=== PATIENT | female | born 2000 | race Hispanic/Latino ===

== ENCOUNTER 2025-04-10 03:06 | Emergency (ER) | payer SELFPAY ==
[2025-04-10] MEDS ORDERED: diphenhydrAMINE 50 MG/ML VIAL ONE (03:34)
[2025-04-10] MEDS ORDERED: Prochlorperazine 10 MG/2 ML VIAL ONE (03:34)
[2025-04-10] MEDS ORDERED: Ketorolac Tromethamine 30 MG (1 mL) VIAL ONE (03:34)
[2025-04-10 03:52] LABS: #Basophils 0.07 10x3/uL (0.0-0.2); #Eosinophils 0.63 10x3/uL (0.0-0.5); #Monocytes 0.50 10x3/uL (0.0-1.1); #Neutrophils 4.41 10x3/uL (1.5-8.4); %Basophils 0.8 % (0.0-2.0); %Eosinophils 7.2 % (0.0-6.0); %Lymphocytes 35.4 % (18.0-47.0); %Monocytes 5.7 % (0.0-10.0); %Neutrophils 50.4 % (40.0-75.0); Hematocrit 39.8 % (34.9-44.5); Hemoglobin 13.6 g/dL (12.0-15.5); Mean Corpuscular Hemoglobin 29.2 pg (27.0-33.0); Mean Corpuscular Volume 85.6 fL (81.6-98.3); Platelet Count 338 10x3/uL (150-450); Red Blood Cell (RBC) Count 4.65 10x6/uL (3.90-5.03); White Blood Cell (WBC) Count 8.74 10x3/uL (3.5-10.5)
[2025-04-10 04:02] LABS: BHCG - Serum Negative (NEGATIVE); Pregs Control Background? CLEAR/WHITE (CLR/WHITE); Pregs Control Bar Appear? YES (CONTROL BAR)
[2025-04-10 04:06] LABS: ALT (SGPT) 19 U/L (Less than 34); AST (SGOT) 33 U/L (11-34); Albumin 4.3 g/dL (3.1-4.5); Alkaline Phosphatase 82 U/L (40-110); Anion Gap 14 mmol/L (10-20); BUN (Urea Nitrogen) 13 mg/dL (7.0-18.7); Bilirubin, Total 0.2 mg/dL (0.3-1.2); Calc. Creatinine Clearance 0 mL/min (70-130); Calcium 9.8 mg/dL (7.8-10.44); Carbon Dioxide 23 mmol/L (22-29); Chloride 104 mmol/L (98-107); Globulin 3.7 g/dL (2.4-3.5); Glucose 106 mg/dL (70-105); Lipase 44 U/L (8-78); Potassium 3.7 mmol/L (3.5-5.1); Sodium 137 mmol/L (136-145)
== END 2025-04-10 05:05 | disposition home or self-care (01) ==
LOC: CSHERS 03:06
DX: K80.70 Calculus of gallbladder and bile duct without cholecystitis without obstruction (principal)
CPT/HCPCS: 76705; 80053; 83690; 84703; 85025; 96374; 96375; J0780; J1200; J1885